=== PATIENT | male | born 1940 | race Caucasian/White ===

== ENCOUNTER 2022-05-17 13:26 | Inpatient (IN) ==
[2022-05-17] MEDS ORDERED: IODIXANOL 100 ML BOTTLE IV ONE (13:27)
--- NOTE | 2022-05-17 14:32 | Emergency Department Note ---
HPI General Chief complaint: Extremity Injury, Upper Stated complaint: right swollen hand Time Seen by Provider: 05/17/22 14:21 Source: patient Mode of arrival: ambulatory History of Present Illness HPI Narrative: Narrative: Patient is an 81 yo M who presents to the emergency department due to hand and arm swelling and redness. Patient initially went to minor care, but was sent to the emergency department due to concern for potential confusion. Patient denies confusion at this time. He states that he began to have pain and redness just proximal to his right index finger yesterday, but that this has spread rapidly. He endorses pain, swelling, and chills, but denies any other symptoms at this time. Related Data Home Medications Medication Instructions Recorded Confirmed acetaminophen 500 mg tablet 500 mg PO QDAY PRN Pain, Moderate 04/04/21 05/17/22 diphenhydramine HCl 25 mg capsule 25 mg PO QHS 09/06/21 05/17/22 (Benadryl) levothyroxine 50 mcg tablet 50 mcg PO QAM 02/14/22 05/17/22 (Euthyrox) prednisone 10 mg tablet 40 mg PO QDAY 05/17/22 05/17/22 Previous Rx's Medication Instructions Recorded simvastatin 40 mg tablet 40 mg PO QPM #90 tabs 08/14/21 meloxicam 7.5 mg tablet 15 mg PO HS #10 tabs 09/24/21 lisinopril 40 mg tablet 40 mg PO QDAY #90 tabs 04/02/22 Allergies Allergy/AdvReac Type Severity Reaction Status Date / Time No Known Drug Allergies Allergy Verified 05/17/22 21:06 Review of Systems ROS ROS Narrative: Narrative: Constitutional: Denies fever or weakness Eyes: Denies eye pain or vision change ENT ED: Denies throat pain or rhinorrhea Cardiovascular: Denies chest pain, dyspnea on exertion, orthopnea or edema Respiratory: Denies shortness of breath or cough Gastrointestinal: Denies abdominal pain, nausea, vomiting, diarrhea, constipation, hematochezia or melena Genitourinary: Denies dysuria or frequency Musculoskeletal: Reports other (Right hand and arm pain, redness, and swelling); Denies back pain or myalgia Integumentary: Reports change in color (Of right hand and arm); Denies rash or lesions Neurological: Denies headache, weakness, numbness, confusion, abnormal gait or dizziness Endocrine: Denies fatigue or polyuria Hematological/Lymphatic: Denies easy bleeding or easy bruising PFSH Narrative Patient History Narrative: Narrative: Medical/Surgical/Family History All Active Problems (Updated 05/18/22 @ 10:43 by Eran Santiago MD) Cellulitis (Acute) History of urostomy (Acute) Head injury (Acute) Injury of shoulder (Acute) Rotator cuff injury (Acute) HTN (hypertension) (Chronic) Hyponatremia (Chronic) Closed pelvic fracture (Acute) Closed head injury (Acute) Polyarthralgia (Acute) Complete small bowel obstruction (Acute) Carcinoma of bladder (Acute) Low back pain (Acute) Hamstring muscle strain (Acute) Coccyx pain (Acute) Rib fracture (Acute) Head injury (Acute) Rib pain on right side (Acute) Fall (Acute) Medicare annual wellness visit, subsequent (Acute) Dizziness (Acute) Primary osteoarthritis of left knee (Chronic) 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) Essential (primary) hypertension (Chronic) BPH w urinary obs/LUTS (Chronic) Bladder tumor (Chronic ~2011) Hematuria (Chronic ~2011) Tubular adenoma of colon (Chronic 10/07/12) Contusion of right hand (Acute) Right hand pain (Acute) Nocturia (Chronic) Shoulder sprain (Chronic) Knee pain (Chronic 10/07/14) Blepharitis (Chronic ~11/2015) Cataract (Chronic ~11/2015) History of tobacco use (Chronic) Arthritis of hand (Chronic ~2009) Bladder cancer (Chronic ~06/22/12) Hyperlipidemia (Chronic ~2004) Actinic keratosis (Chronic ~09/02/12) Dependent edema (Chronic ~10/19/14) Hypercholesteremia (Chronic ~04/29/12) Benign neoplasm of skin (Chronic ~09/19/12) Medical History Actinic keratosis (~09/02/12) Arthritis of hand (~2009) Benign neoplasm of skin (~09/19/12) Bladder cancer (~06/22/12) Bladder tumor (~2011) Blepharitis (~11/2015) Posterior type OU Carcinoma of bladder Cataract (~11/2015) OU Coccyx pain Dependent edema (~10/19/14) Hamstring muscle strain Hematuria (~2011) History of tobacco use Hypercholesteremia (~04/29/12) Hyperlipidemia (~2004) Knee pain (10/07/14) Overused Low back pain Medicare annual wellness visit, subsequent Nocturia Shoulder sprain Tubular adenoma of colon (10/07/12) Surgical History H/O colonoscopy 10/07/2012 H/O cystoscopy 05/01/2016 TUR bladder biopsy-stricture of the bulbous urethra. Urethral dilation performed. Papillary tumor present. H/O total cystectomy History of biopsy of bladder Second bladder biopsy on 11/22/2014 - Benign History of biopsy of bladder Initial bladder biopsy 06/26/2012 - TCC Ta, G1 History of bladder surgery 06/2012 TransUrethral Resection of Bladder Tumor History of cystoscopy (07/02/12) TURBT, bladder biopsies and installation of Adriamycin History of herniorrhaphy (~1998) Right side History of herniorrhaphy (~2012) Left side History of surgery (~2012) Chemo treatment for bladder cancer S/P cystourethroscopy with dilation of urethral stricture 03/30/14 Family History Mother Arthritis Dementia Father Heart attack CAD (coronary artery disease) Social History Smoking Status: Former smoker Alcohol Intake Frequency: 0-2 drinks per day Substance Use: does not use Exam Narrative Narrative: Narrative: General General appearance: Present alert and in no apparent distress; Absent anxious, appears intoxicated or sleepy Head Head: Present atraumatic and normocephalic Eye Eye: Present EOMI; Absent scleral icterus or nystagmus ENT ENT: Present mucous membranes moist; Absent nasal congestion Neck Neck: Present full ROM; Absent tenderness Chest Chest: Present normal inspection and symmetric chest wall rise; Absent tenderness Respiratory Respiratory: Present normal lung sounds bilaterally; Absent respiratory distress or accessory muscle use Cardiovascular Cardiovascular: Present regular rate, normal rhythm and normal heart sounds Adbominal Abdominal: Present soft and normal bowel sounds; Absent distention or tenderness Extremities Extremities: Present normal inspection, full ROM, tenderness and other (Right hand and forearm erythema, swelling, and tenderness); Absent pedal edema or pretibial edema Back Back: Present normal inspection and full ROM Neurological Neurological: Present alert and oriented X3; Absent motor sensory deficit Psychiatric Psychiatric: Present normal affect and normal mood Skin Skin: Present warm (WNL), dry and normal color Course Vital Signs Vital signs: Vital Signs Temperature 101.1 F H 05/17/22 13:30 Pulse Rate 66 05/17/22 13:30 Respiratory Rate 20 05/17/22 13:30 Blood Pressure 138/66 05/17/22 13:30 Pulse Oximetry (%) 94 05/17/22 13:30 Oxygen Delivery Method 05/17/22 13:30 Temperature 98.4 F 05/18/22 08:00 Pulse Rate 70 05/18/22 08:00 Respiratory Rate 16 05/18/22 08:00 Blood Pressure 109/59 05/18/22 08:00 Pulse Oximetry (%) 99 05/18/22 08:00 Oxygen Delivery Method 05/18/22 08:00 MDM MDM Narrative Medical decision making narrative: Narrative: Patient is an 81 yo M who presents to the emergency department due to RUE infection. Given rapidity of spread there is some concern for potential NSTI. XR and CT were performed and did not demonstrate findings consistent with NSTI. Labs were performed and patient given antibiotics. Patient has a leukocytosis of 16.5. Given concern for infection over large area and rapidity of spread I spoke to Dr. Capone about admission and he agreed to see and evaluate patient for this purpose. Lab Data Result diagrams: 05/18/22 05:54 05/18/22 05:54 Labs: Lab Results 05/17/22 05/17/22 05/17/22 Range/Units 14:55 14:55 14:55 WBC 16.5 H (4.5-11.0) K/mcL RBC 3.63 L (4.63-6.08) M/mcL Hgb 11.3 L (13.7-17.5) g/dL Hct 32.3 L (40.1-51.0) % POC Hct (41-55) MCV 89.0 (80.0-100.0) fL MCH 31.1 (26.0-34.0) pg MCHC 35.0 (31.0-36.0) g/dL RDW 13.0 (11.5-14.5) % Plt Count 217 (140-440) K/mcL MPV 8.9 (8.8-12.5) fL Immature Gran % (Auto) 0.4 (0.0-0.5) % Neut % (Auto) 91.6 H (38.0-78.0) % Lymph % (Auto) 2.8 L (15.5-49.0) % [place] % (Auto) 5.1 (1.0-12.0) % Eos % (Auto) 0 (0.0-7.0) % Baso % (Auto) 0.1 (0.0-2.0) % Lymph # (Auto) 0.47 L (1.50-4.80) K/mcL [place] # (Auto) 0.85 (0.10-0.90) K/mcL Eos # (Auto) 0 (0.00-0.70) K/mcL Baso # (Auto) 0.02 (0.00-0.30) K/mcL Immature Gran # 0.07 H (0.00-0.05) K/mcl Absolute Neutrophils 15.12 H (1.80-8.00) K/mcL POC Sodium (133-145) POC Potassium (3.3-5.1) POC Chloride (96-108) POC Total CO2 (22-30) POC BUN (6-20) POC Creatinine (0.6-1.2) POC Glucose (70-105) Osmolality 273 L (280-300) mOSM/kg Uric Acid 3.3 (2.5-8.0) mg/dL POC WB Ioniz Calcium (1.16-1.32) Procalcitonin 0.26 H (<0.10) ng/mL TSH 0.96 (0.27-5.01) uIU/mL 05/17/22 Range/Units 14:58 WBC (4.5-11.0) K/mcL RBC (4.63-6.08) M/mcL Hgb (13.7-17.5) g/dL Hct (40.1-51.0) % POC Hct 34.0 L (41-55) MCV (80.0-100.0) fL MCH (26.0-34.0) pg MCHC (31.0-36.0) g/dL RDW (11.5-14.5) % Plt Count (140-440) K/mcL MPV (8.8-12.5) fL Immature Gran % (Auto) (0.0-0.5) % Neut % (Auto) (38.0-78.0) % Lymph % (Auto) (15.5-49.0) % [place] % (Auto) (1.0-12.0) % Eos % (Auto) (0.0-7.0) % Baso % (Auto) (0.0-2.0) % Lymph # (Auto) (1.50-4.80) K/mcL [place] # (Auto) (0.10-0.90) K/mcL Eos # (Auto) (0.00-0.70) K/mcL Baso # (Auto) (0.00-0.30) K/mcL Immature Gran # (0.00-0.05) K/mcl Absolute Neutrophils (1.80-8.00) K/mcL POC Sodium 125 L (133-145) POC Potassium 4.1 (3.3-5.1) POC Chloride 91 L (96-108) POC Total CO2 28.0 (22-30) POC BUN 33 H (6-20) POC Creatinine 1.0 (0.6-1.2) POC Glucose 107 H (70-105) Osmolality (280-300) mOSM/kg Uric Acid (2.5-8.0) mg/dL POC WB Ioniz Calcium 1.15 L (1.16-1.32) Procalcitonin (<0.10) ng/mL TSH (0.27-5.01) uIU/mL Discharge Plan Patient/Caregiver Discharge Instructions Pt seen by PIPE RACKER/PA only: No Clinical Impression: Cellulitis Patient Disposition: Xfer As Inpt ([facility]) Discharge Date/Time: 05/17/22 20:28
[2022-05-17] MEDS ORDERED: VANCOMYCIN 1,000 MG in 0.9 % SODIUM CHLORIDE 250 ML IV ONE (14:57)
[2022-05-17] MEDS ORDERED: PIPERACILLIN SODIUM/TAZOBACTAM 3.375 GM in DEXTROSE 5% IN WATER 50 ML IV ONE (14:57)
[2022-05-17] MEDS ORDERED: 0.9 % SODIUM CHLORIDE 1,000 ML IV ONE (14:59)
[2022-05-17 15:03] LABS: POC Calcium, Ionized 1.15 (1.16-1.32); POC Potassium 4.1 (3.3-5.1)
--- NOTE | 2022-05-17 15:28 | XRay Report ---
INDICATION: Rapidly spreading infection, concern for NSTI TECHNIQUE: PA, oblique, lateral right hand COMPARISON: None. FINDINGS: Degenerative joint disease in the right first metacarpal phalangeal joint. Degenerative joint disease in the second through fifth distal interphalangeal joints. There is degenerative disease in the distal radial ulnar joint. There is a cyst in the right capitate. No pathologic fracture Second through fifth metacarpal phalangeal joints are unremarkable. There is no acute fracture. No soft tissue gas. No detectable foreign body IMPRESSION: 1. Degenerative joint disease 2. No fracture. No acute abnormality. No soft tissue gas or detectable foreign body 3. No interval change Interpreted and Authenticated by: Cuco Macdonald 05/17/22
--- NOTE | 2022-05-17 15:32 | XRay Report ---
INDICATION: Rapidly spreading infection, concern for NSTI TECHNIQUE: AP and lateral right forearm COMPARISON: None. FINDINGS: Negative radius and ulna. No acute fracture. Severe degenerative disease in the distal radial ulnar joint. No acute posttraumatic abnormality. No soft tissue gas or detectable foreign body IMPRESSION: No acute abnormality Interpreted and Authenticated by: Cuco Macdonald 05/17/22
[2022-05-17 15:49] LABS: Basophils # (Auto) 0.02 K/mcL (0.00-0.30); Basophils % (Auto) 0.1 % (0.0-2.0); Eosinophils # (Auto) 0 K/mcL (0.00-0.70); Eosinophils % (Auto) 0 % (0.0-7.0); Hematocrit 32.3 % (40.1-51.0); Hemoglobin 11.3 g/dL (13.7-17.5); Lymphocytes # (Auto) 0.47 K/mcL (1.50-4.80); Lymphocytes % (Auto) 2.8 % (15.5-49.0); Mean Platelet Volume 8.9 fL (8.8-12.5); Monocytes # (Auto) 0.85 K/mcL (0.10-0.90); Monocytes % (Auto) 5.1 % (1.0-12.0); Neutrophils % (Auto) 91.6 % (38.0-78.0); Platelet Count 217 K/mcL (140-440); RBC 3.63 M/mcL (4.63-6.08); WBC 16.5 K/mcL (4.5-11.0)
[2022-05-17] MEDS ORDERED: ACETAMINOPHEN 1,000 MG/100 ML BAG IV ONE (16:42)
--- NOTE | 2022-05-17 18:19 | Cat Scan Report ---
INDICATION: Concern for NSTI TECHNIQUE: Axial images through the right forearm. Intravenous contrast material was administered. Sagittal and coronal reformatted images. COMPARISON: Previous plain film examination dated 05/17/2022 FINDINGS: Radius and ulna are negative. There is no fracture. No osseous destruction. No evidence for osteomyelitis. There is density within the subcutaneous fat. There is also probable mild density within the muscle bundles. Appearance is consistent with edema or cellulitis. There is no discrete mass. No focal abscess identified. No enhancing lesion. There is no soft tissue gas to indicate necrotizing fasciitis. Vascular structures enhance normally. IMPRESSION: 1. Diffuse edema or cellulitis 2. No focal abnormality. No abscess. 3. No soft tissue gas. No evidence for necrotizing fasciitis Interpreted and Authenticated by: Cuco Macdonald 05/17/22
--- NOTE | 2022-05-17 19:09 | Internal Med History&Physical ---
HPI History of Present Illness Patient information: Note initiated : 05/17/22 at 7:04 pm Service Date, if different from initiated Date: [] Patient: Aneudy Sanders a 81 y/o M admitted on for right swollen hand. Chief Complaint: [] History of present illness: Mr. Sanders is a 81 year old M Presents to the ED with red and swollen and hot right hand. It started yesterday. Patient states that he woke up and feeling fine and his hand and arm were unre markable and then in the evening he did not notice it suddenly had increased in size with swelling, redness, warmth, painful. In the ED he is febrile and tachycardic. Have a leukocytosis 16,000. Elevated procalcitonin. His hand was diffusely swollen with severe cellulitis. CT of the forearm forearm and hand revealed severe diffuse cellulitis but no abscess or fasciitis. He has a history of bladder cancer status post cystectomy and is on nivolumab. Follows with Dr. Talley. Patient has history of hyponatremia and per oncology notes was advised to have fluid restriction of 1 L/day and salt tabs. Patient says he drinks at least 64- ounces (1900ml) a day. Patient was put on prednisone by his oncologist for potential autoimmune adverse event resulting in proximal muscle weakness of the lower extremities. He started 50 mg and taper down to 40 and then is supposed to go to 30 mg next week. Because of the severity of his cellulitis of the hand and arm and sepsis presentation. Admission was requested. Review of Systems: Pertinent positives as above. Denies headache/fever/chills/nausea/vomiting/chest or abdominal pain/cough/dyspnea/diarrhea. Remaining 10 point review of system reviewed negative PFSH PFSH All Active Problems History of urostomy (Acute) Head injury (Acute) Injury of shoulder (Acute) Rotator cuff injury (Acute) HTN (hypertension) (Chronic) Hyponatremia (Chronic) Closed pelvic fracture (Acute) Closed head injury (Acute) Polyarthralgia (Acute) Complete small bowel obstruction (Acute) Carcinoma of bladder (Acute) Low back pain (Acute) Hamstring muscle strain (Acute) Coccyx pain (Acute) Rib fracture (Acute) Head injury (Acute) Rib pain on right side (Acute) Fall (Acute) Medicare annual wellness visit, subsequent (Acute) Dizziness (Acute) Primary osteoarthritis of left knee (Chronic) 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) Essential (primary) hypertension (Chronic) BPH w urinary obs/LUTS (Chronic) Bladder tumor (Chronic ~2011) Hematuria (Chronic ~2011) Tubular adenoma of colon (Chronic 10/07/12) Contusion of right hand (Acute) Right hand pain (Acute) Nocturia (Chronic) Shoulder sprain (Chronic) Knee pain (Chronic 10/07/14) Blepharitis (Chronic ~11/2015) Cataract (Chronic ~11/2015) History of tobacco use (Chronic) Arthritis of hand (Chronic ~2009) Bladder cancer (Chronic ~06/22/12) Hyperlipidemia (Chronic ~2004) Actinic keratosis (Chronic ~09/02/12) Dependent edema (Chronic ~10/19/14) Hypercholesteremia (Chronic ~04/29/12) Benign neoplasm of skin (Chronic ~09/19/12) Medical History Actinic keratosis (~09/02/12) Arthritis of hand (~2009) Benign neoplasm of skin (~09/19/12) Bladder cancer (~06/22/12) Bladder tumor (~2011) Blepharitis (~11/2015) Posterior type OU Carcinoma of bladder Cataract (~11/2015) OU Coccyx pain Dependent edema (~10/19/14) Hamstring muscle strain Hematuria (~2011) History of tobacco use Hypercholesteremia (~04/29/12) Hyperlipidemia (~2004) Knee pain (10/07/14) Overused Low back pain Medicare annual wellness visit, subsequent Nocturia Shoulder sprain Tubular adenoma of colon (10/07/12) Surgical History H/O colonoscopy 10/07/2012 H/O cystoscopy 05/01/2016 TUR bladder biopsy-stricture of the bulbous urethra. Urethral dilation performed. Papillary tumor present. H/O total cystectomy History of biopsy of bladder Second bladder biopsy on 11/22/2014 - Benign History of biopsy of bladder Initial bladder biopsy 06/26/2012 - TCC Ta, G1 History of bladder surgery 06/2012 TransUrethral Resection of Bladder Tumor History of cystoscopy (07/02/12) TURBT, bladder biopsies and installation of Adriamycin History of herniorrhaphy (~1998) Right side History of herniorrhaphy (~2012) Left side History of surgery (~2012) Chemo treatment for bladder cancer S/P cystourethroscopy with dilation of urethral stricture 03/30/14 Family History Mother Arthritis Dementia Father Heart attack CAD (coronary artery disease) Social History marital status: occupational status: retired occupation: [email or web address] smoking status: Former smoker alcohol intake frequency: 0-2 drinks per day substance use type: does not use MEDS/ALLERGIES Home Medications and Allergies Home Medications Medication Instructions Recorded Confirmed Type acetaminophen 500 mg tablet 500 mg PO QDAY PRN Pain, Moderate 04/04/21 05/17/22 History [id number] K 1 tab PO QDAY 04/04/21 05/17/22 History [Adults Multivitamin] nivolumab 240 mg/24 mL intravenous 480 mg IV Q4W 07/17/21 05/17/22 History solution simvastatin 40 mg tablet 40 mg PO QPM #90 tabs 08/14/21 05/17/22 Rx diphenhydramine HCl 25 mg capsule 25 mg PO QHS 09/06/21 05/17/22 History (Benadryl) meloxicam 7.5 mg tablet 15 mg PO HS #10 tabs 09/24/21 05/17/22 Rx levothyroxine 50 mcg tablet 50 mcg PO QAM 02/14/22 05/17/22 History (Euthyrox) lisinopril 40 mg tablet 40 mg PO QDAY #90 tabs 04/02/22 05/17/22 Rx polyethylene glycol 3350 17 gram 17 g PO DAILY constipation 04/02/22 05/17/22 History oral powder packet (HealthyLax) prednisone 10 mg tablet 50 mg PO QDAY 05/17/22 05/17/22 History Allergies Allergy/AdvReac Type Severity Reaction Status Date / Time No Known Drug Allergies Allergy Verified 05/17/22 12:58 EXAM Constitutional Vitals: Temp Pulse Resp BP Pulse Ox O2 Del Method 98.4 F 93 H 20 123/53 100 05/17/22 17:45 05/17/22 17:31 05/17/22 13:30 05/17/22 17:31 05/17/22 17:31 05/17/22 13:30 Exam: General: Alert, Awake, No acute Distress Eyes/N/T: EOMI, PERRL, Head/Neck: neck supple, normocephalic atraumatic CV: RRR, No murmurs, normal s1/s2 Pulm: Clear b/l, no wheezing/rhonchi/rales Abd: soft, nontender, +BS x4 Ext: no clubbing/cyanosis/edema of LE. RUE with erythema/edema/tenderness extending from the hand up the forearm and much worse over the hand. Neuro: Alert, no focal deficits, moves all extremities, CN 2-12 grossly intact, symmetrical strength b/l upper/lower, sensations intact b/l upper/lower Skin: warm/dry DATA Data Completed and Pending Labs: Labs from last 24 hours 05/17/22 05/17/22 05/17/22 14:58 14:55 14:55 WBC 16.5 H RBC 3.63 L Hgb 11.3 L Hct 32.3 L POC Hct 34.0 L MCV 89.0 MCH 31.1 MCHC 35.0 RDW 13.0 Plt Count 217 MPV 8.9 Immature Gran % (Auto) 0.4 Neut % (Auto) 91.6 H Lymph % (Auto) 2.8 L [place] % (Auto) 5.1 Eos % (Auto) 0 Baso % (Auto) 0.1 Lymph # (Auto) 0.47 L [place] # (Auto) 0.85 Eos # (Auto) 0 Baso # (Auto) 0.02 Immature Gran # 0.07 H Absolute Neutrophils 15.12 H POC Sodium 125 L POC Potassium 4.1 POC Chloride 91 L POC Total CO2 28.0 POC BUN 33 H POC Creatinine 1.0 POC Glucose 107 H POC WB Ioniz Calcium 1.15 L Procalcitonin 0.26 H A/P Narrative A/P Narrative: A: *Right hand forearm cellulitis, severe: -no abscess or fasciitis *Sepsis: *Hyponatremia, chronic: *h/o bladder CA s/p cystectomy and urostomy: currently on Nivolumab -currently on prednisone taper started several weeks ago by oncology, currently on 40mg *Immunocompromised: *CKD II: *Anemia, chronic: *HTN/HLD: *Hypothyroidism: * P: -IV antibiotics including clindamycin for 48 hours for toxin production, MRSA screen -Monitor vitals closely and for progression of cellulitis. -Hyponatremia work-up pending -Monitor sodium -Monitor and replace other electrolytes -Continue home ACEI -Home medication reconciliation -PT/OT -CM for placement needs -ppx: Lovenox Time Spent With Patient Time: Total time spent is greater than 50% in coordination of care (as documented) at patient's floor/unit and/or counseling patient: Total time spent with greater than 50% in coordination of care (as documented) at patient's floor/unit and/or counseling patient:: Greater than 70 minutes
[2022-05-17] MEDS ORDERED: POLYETHYLENE GLYCOL 3350 17 GM PACKET PO PRN (20:36)
[2022-05-17] MEDS ORDERED: POTASSIUM CHLORIDE 20 MEQ TABLET PO PRN ×2 (20:36)
[2022-05-17] MEDS ORDERED: ONDANSETRON 4 MG/2 ML VIAL IV PRN (20:36)
[2022-05-17] MEDS ORDERED: IPRATROPIUM/ALBUTEROL 3 ML AMPUL.NEB NEB PRN (20:36)
[2022-05-17] MEDS ORDERED: morphine 4 MG/ML VIAL IV PRN (20:36)
[2022-05-17] MEDS ORDERED: MAGNESIUM SULFATE 2 GM/50 ML BAG IV PRN (20:36)
[2022-05-17] MEDS ORDERED: HYDROcodone/APAP 5/325MG TABLET PO PRN (20:36)
[2022-05-17] MEDS ORDERED: POTASSIUM CHLORIDE 40 MEQ in DEXTROSE 5% IN WATER 500 ML IV PRN (20:36)
[2022-05-17] MEDS ORDERED: SENNOSIDES 1 TABLET PO PRN (20:36)
[2022-05-17] MEDS: PIPERACILLIN SODIUM/TAZOBACTAM 3.375 GM in DEXTROSE 5% IN WATER 50 ML IV SCH (21:37)
[2022-05-17] MEDS: 0.9 % SODIUM CHLORIDE 10 ML SYRINGE IV SCH (21:37)
[2022-05-17] MEDS: DOCUSATE SODIUM 100 MG CAPSULE PO SCH (21:38)
[2022-05-17] MEDS: ACETAMINOPHEN 325 MG TABLET PO PRN (21:56)
[2022-05-17] MEDS: CLINDAMYCIN IN 0.9 % SOD CHLOR 600 MG/50 ML BAG IV SCH (22:29)
[2022-05-17] MEDS ORDERED: diphenhydrAMINE (PP) 25MG TABLET (#24) PO ONE (22:31)
[2022-05-17] MEDS ORDERED: MELOXICAM 7.5 MG TABLET PO SCH (22:32)
[2022-05-17] MEDS ORDERED: diphenhydrAMINE 25 MG CAPSULE ONE (22:38)
[2022-05-17] MEDS: MELOXICAM 7.5 MG TABLET PO PRN (23:04)
[2022-05-17] MEDS: SIMVASTATIN 40 MG TABLET PO SCH (23:28)
[2022-05-17 23:32] LABS: Thyroid Stimulating Hormone 0.96 uIU/mL (0.27-5.01); Uric Acid 3.3 mg/dL (2.5-8.0)
[2022-05-17 23:59] LABS: Osmolality,Urine 554 mOSM/kg (80-1000); Sodium, Urine Random 26 mmol/L
[2022-05-18] MEDS: PIPERACILLIN SODIUM/TAZOBACTAM 3.375 GM in DEXTROSE 5% IN WATER 50 ML IV SCH ×4 (03:19→21:38)
[2022-05-18] MEDS: ACETAMINOPHEN 325 MG TABLET PO PRN ×2 (04:46→20:58)
[2022-05-18] MEDS: 0.9 % SODIUM CHLORIDE 10 ML SYRINGE IV SCH ×3 (04:47→22:00)
[2022-05-18] MEDS: CLINDAMYCIN IN 0.9 % SOD CHLOR 600 MG/50 ML BAG IV SCH ×3 (04:47→21:01)
[2022-05-18 06:59] LABS: Basophils # (Auto) 0.02 K/mcL (0.00-0.30); Basophils % (Auto) 0.1 % (0.0-2.0); Eosinophils # (Auto) 0 K/mcL (0.00-0.70); Eosinophils % (Auto) 0 % (0.0-7.0); Hematocrit 25.4 % (40.1-51.0); Hemoglobin 8.8 g/dL (13.7-17.5); Lymphocytes # (Auto) 0.77 K/mcL (1.50-4.80); Lymphocytes % (Auto) 5.6 % (15.5-49.0); Mean Cell Volume 89.8 fL (80.0-100.0); Mean Corpuscular HGB Conc 34.6 g/dL (31.0-36.0); Mean Platelet Volume 9.2 fL (8.8-12.5); Monocytes # (Auto) 0.92 K/mcL (0.10-0.90); Monocytes % (Auto) 6.6 % (1.0-12.0); Neutrophils % (Auto) 87.1 % (38.0-78.0); Platelet Count 149 K/mcL (140-440); RBC 2.83 M/mcL (4.63-6.08); Red Cell Distribution Width 13.1 % (11.5-14.5); WBC 13.9 K/mcL (4.5-11.0)
[2022-05-18 07:29] LABS: ALT/SGPT 14 U/L (<40); AST/SGOT 15 U/L (<40); Albumin 2.8 gm/dL (3.2-5.2); Albumin/Globulin Ratio 1.6 (1.0-2.3); Alkaline Phosphatase 39 U/L (39-117); Bilirubin,Direct 0.4 mg/dL (<0.3); Bilirubin,Total 1.5 mg/dL (0.1-1.0); Blood Urea Nitrogen 26 mg/dL (8-23); Calcium 8.4 mg/dL (8.6-10.4); Carbon Dioxide 23 mmol/L (22-30); Chloride 93 mmol/L (96-108); Globulin 1.7 gm/dL (2.2-3.7); Glomerular Filtration Rate 62; Glucose 102 mg/dL (70-105); Lactate Dehydrogenase 252 U/L (135-225); Phosphorous 3.4 mg/dL (2.5-4.5); Triglycerides 51 mg/dL (<150); Uric Acid 2.2 mg/dL (2.5-8.0)
--- NOTE | 2022-05-18 07:31 | Internal Med Progress Note ---
SUBJECTIVE Subjective Patient information: Note initiated : 05/18/22 at 7:26 am Service Date, if different from initiated Date: [] Patient: Aneudy Sanders a 81 y/o M admitted on 05/17/22 for right swollen hand- Sepsis/Cellulitis. Chief Complaint: [] Interval history: History of present illness: Mr. Sanders is a 81 year old M Presents to the ED with red and swollen and hot right hand. It started yesterday. Patient states that he woke up and feeling fine and his hand and arm were unremarkable and then in the evening he did not notice it suddenly had increased in size with swelling, redness, warmth, painful. In the ED he is febrile and tachycardic. Have a leukocytosis 16,000. Elevated procalcitonin. His hand was diffusely swollen with severe cellulitis. CT of the forearm forearm and hand revealed severe diffuse cellulitis but no abscess or fasciitis. He has a history of bladder cancer status post cystectomy and is on nivolumab. Follows with Dr. Talley. Patient has history of hyponatremia and per oncology notes was advised to have fluid restriction of 1 L/day and salt tabs. Patient says he drinks at least 64- ounces (1900ml) a day. Patient was put on prednisone by his oncologist for potential autoimmune adverse event resulting in proximal muscle weakness of the lower extremities. He started 50 mg and taper down to 40 and then is supposed to go to 30 mg next week. Because of the severity of his cellulitis of the hand and arm and sepsis presentation. Admission was requested. 05/18 Patient complains of hand still swollen and tender but feels like it slightly improved he is able to close his hand a little more. Leukocytosis present but mildly improved. Hemoglobin decreased by several points today. Patient denies diarrhea or bleeding. Likely due to delusional, monitor. Review of Systems: denies headache/fever/chills/nausea/vomiting/chest or abdominal pain/cough/dyspnea/diarrhea. Otherwise see above. Constitutional Vitals: Vital Signs Temp Pulse Resp BP Pulse Ox O2 Del Method 99.7 F H 66 18 110/58 97 05/18/22 03:21 05/18/22 03:21 05/18/22 03:21 05/18/22 03:21 05/18/22 03:21 05/18/22 03:21 Period Temp Pulse Resp BP Sys/Dutton Pulse Ox O2 Del Method O2 Flow Rate Last 24 Hr 97.7 F-101.1 F 66-96 18-20 109-145/50-73 94-100 Room Air-Room Air Intake and Output 05/17/22 05/18/22 05/18/22 19:59 03:59 11:59 Intake Total 1400 100 100 Output Total 450 Balance 1400 -350 100 Weight 55.792 kg 53.155 kg Intake & Output: Intake & Output 05/17/22 05/18/22 05/18/22 19:59 03:59 11:59 Intake Total 1400 100 100 Output Total 450 Balance 1400 -350 100 Weight 55.792 kg 53.155 kg Intake: IV 1400 100 100 Sodium Chloride 0.9% 1,000 ml @ 1000 Wide Open IV BOLUS ONE Rx#: [id number] Zosyn 3.375 gm In Dextrose 5% 50 50 50 in Water 50 ml @ 100 mls/hr IV Q6H [facility] Rx#:[id number] Vancomycin 1,000 mg In Sodium 250 Chloride 0.9% 250 ml @ 250 mls/ hr IV ONCE ONE Rx#:[id number] Output: Void Amount 450 Exam: General: Alert, Awake, No acute Distress Eyes/N/T: EOMI, Head/Neck: neck supple, CV: RRR, No murmurs, Pulm: Clear b/l, no wheezing/rhonchi/rales Abd: soft, nontender, +BS x4 Ext: no clubbing/cyanosis/edema of LE. RUE with erythema/edema/tenderness extending from the hand up the forearm and much worse over the hand -mildly improved today. Neuro: Alert, no focal deficits, moves all extremities, Skin: warm/dry OBJ DATA Labs CBC & Chem 7: 05/18/22 05:54 05/18/22 05:54 Labs: Abnormal Lab Results 05/18/22 05/18/22 05/17/22 05:55 05:54 14:58 WBC 13.9 H RBC 2.83 L Hgb 8.8 L Hct 25.4 L POC Hct 34.0 L Immature Gran % (Auto) 0.6 H Neut % (Auto) 87.1 H Lymph % (Auto) 5.6 L Lymph # (Auto) 0.77 L Garza # (Auto) 0.92 H Immature Gran # 0.09 H Absolute Neutrophils 12.06 H POC VBG pH 7.49 H POC VBG pCO2 at Temp 31.3 L POC VBG pO2 61 H POC VBG HCO3 23.6 L POC Venous O2 Sat 93.0 H VBG Lactic Acid 0.4 L POC Sodium 125 L POC Chloride 91 L POC BUN 33 H POC Glucose 107 H Osmolality POC WB Ioniz Calcium 1.15 L Procalcitonin 05/17/22 05/17/22 05/17/22 14:55 14:55 14:55 WBC 16.5 H RBC 3.63 L Hgb 11.3 L Hct 32.3 L POC Hct Immature Gran % (Auto) Neut % (Auto) 91.6 H Lymph % (Auto) 2.8 L Lymph # (Auto) 0.47 L [place] # (Auto) Immature Gran # 0.07 H Absolute Neutrophils 15.12 H POC VBG pH POC VBG pCO2 at Temp POC VBG pO2 POC VBG HCO3 POC Venous O2 Sat VBG Lactic Acid POC Sodium POC Chloride POC BUN POC Glucose Osmolality 273 L POC WB Ioniz Calcium Procalcitonin 0.26 H Meds: Medications Acetaminophen (Acetaminophen 325 Mg Tablet) 650 mg PO Q6HP PRN; Protocol PRN Reason: Per Pain Protocol/Fever > 101 Last Admin: 05/18/22 04:46 Dose: 650 mg Hydrocodone Bitart/Acetaminophen (Hydrocodone/Apap 5/325mg Tablet) 1 tab PO Q4HP PRN PRN Reason: PAIN LEVEL 3-6 Albuterol/Ipratropium (Ipratropium/Albuterol 3 Ml Ampul.Neb) 3 ml NEB Q4HP PRN PRN Reason: Shortness Of Breath Diphenhydramine HCl (Diphenhydramine 25 Mg Capsule) 25 mg PO QHS [facility] Diphenhydramine HCl (Diphenhydramine (Pp) 25mg Tablet (#24)) 25 tablet PO ONCE ONE Stop: 05/17/22 22:32 Last Admin: 05/17/22 22:49 Dose: 25 mg Docusate Sodium (Docusate Sodium 100 Mg Capsule) 100 mg PO BID [facility] Last Admin: 05/17/22 21:38 Dose: Not Given Enoxaparin Sodium (Enoxaparin 40 Mg/0.4 Ml Syringe) 40 mg SQ DAILY [facility] Potassium Chloride 40 meq/ (Dextrose) 520 mls @ 130 mls/hr IV UD PRN PRN Reason: Potassium < 3 Magnesium Sulfate (Magnesium Sulfate) 2 gm in 50 mls @ 50 mls/hr IV UD PRN PRN Reason: Magnesium </= 1.6 Piperacillin Sod/Tazobactam (Sod 3.375 gm/ Dextrose) 50 mls @ 100 mls/hr IV Q6H [facility]; Protocol Last Infusion: 05/18/22 04:33 Dose: Infused CLINDAMYCIN IN 0.9 % SOD CHLOR (Clindamycin 600 Mg/50 Ml-Ns) 600 mg in 50 mls @ 100 mls/hr IV Q8H [facility] Stop: 05/19/22 13:29 Last Infusion: 05/18/22 06:42 Dose: Infused Levothyroxine Sodium (Levothyroxine 50 Mcg Tablet) 50 mcg PO QAM [facility] Lisinopril (Lisinopril 20 Mg Tablet) 40 mg PO QDAY [facility] Meloxicam (Meloxicam 7.5 Mg Tablet) 15 mg PO HSP PRN; Protocol PRN Reason: pain Last Admin: 05/17/22 23:04 Dose: 15 mg Morphine Sulfate (Morphine 4 Mg/Ml Vial) 0 mg IV Q3HP PRN PRN Reason: Pain Ondansetron HCl (Ondansetron 4 Mg/2 Ml Vial) 4 mg IV Q4HP PRN PRN Reason: Nausea And Vomiting Polyethylene Glycol (Polyethylene Glycol 3350 17 Gm Packet) 17 gm PO DAILYP PRN PRN Reason: Constipation Potassium Chloride (Potassium Chloride 20 Meq Tablet) 40 meq PO UD PRN PRN Reason: Potssium is 3-3.5 Potassium Chloride (Potassium Chloride 20 Meq Tablet) 40 meq PO UD PRN PRN Reason: Potassium < 3 Prednisone (Prednisone 20 Mg Tablet) 40 mg PO QDAY [facility] Senna (Sennosides 1 Tablet) 2 tab PO DAILYP PRN PRN Reason: Constipation Simvastatin (Simvastatin 40 Mg Tablet) 40 mg PO QPM [facility] Last Admin: 05/17/22 23:28 Dose: Not Given Sodium Chloride (0.9 % Sodium Chloride 10 Ml Syringe) 10 ml IV Q8 [facility] Last Admin: 05/18/22 04:47 Dose: 10 ml A/P Narrative A/P Narrative: A: *Right hand forearm cellulitis, severe: Slowly improving -no abscess or fasciitis on CT *Sepsis: -Tm 100.8 o/n -leukocytosis improving *Hyponatremia, chronic: *h/o bladder CA s/p cystectomy and urostomy: currently on Nivolumab -currently on prednisone taper started several weeks ago by oncology, currently on 40mg *Immunocompromised: *CKD II: *Anemia, acute on chronic:suspect dilution, no gross bleeding monitor for bleeding fobt *HTN/HLD: *Hypothyroidism: tsh wnl * P: -IV antibiotics including clindamycin for 48 hours for toxin production, MRSA screen neg -Monitor vitals closely and for progression of cellulitis. -fluid restrict, salt tabs -Monitor sodium -Monitor and replace other electrolytes -monitor h&h -Continue home ACEI -PT/OT -CM for placement needs -ppx: Lovenox Time Spent With Patient Time: Total time spent is greater than 50% in coordination of care (as documented) at patient's floor/unit and/or counseling patient: Total time spent with greater than 50% in coordination of care (as documented) at patient's floor/unit and/or counseling patient:: 35 - 50 minutes [facility]AL[facility] VTE Deep Vein Thrombosis/Pulmonary Embolism Present on Admission: No
[2022-05-18] MEDS: LISINOPRIL 20 MG TABLET PO SCH (08:22)
[2022-05-18] MEDS: LEVOTHYROXINE 50 MCG TABLET PO SCH (08:22)
[2022-05-18] MEDS: DOCUSATE SODIUM 100 MG CAPSULE PO SCH ×2 (08:22→22:36)
[2022-05-18] MEDS: SODIUM CHLORIDE 1 GM TABLET PO SCH ×3 (08:22→20:58)
[2022-05-18] MEDS: ENOXAPARIN 40 MG/0.4 ML SYRINGE SQ SCH (08:22)
[2022-05-18] MEDS: predniSONE 20 MG TABLET PO SCH (08:22)
[2022-05-18] MEDS ORDERED: diphenhydrAMINE (PP) 25MG TABLET (#24) PO ONE (11:15)
--- NOTE | 2022-05-18 12:20 | Discharge Summary ---
Discharge Provider Provider IMPORTANT FOLLOW-UP INFORMATION FOR PCP: Patient information: Note initiated : 05/18/22 at 12:18 pm Service Date, if different from initiated Date: [] Patient: Aneudy Sanders 81 y/o M admitted on 05/17/22 for right swollen hand-Sepsis/Cellulitis. Chief Complaint: [] Date of admission: 05/17/22 20:28 Discharge date: 05/19/22 Primary care physician: Cuco Arshad DO COURSE Hospital Course Hospital course: History of present illness: Mr. Sanders is a 81 year old M Presents to the ED with red and swollen and hot right hand. It started yesterday. Patient states that he woke up and feeling fine and his hand and arm were unremarkable and then in the evening he did not notice it suddenly had increased in size with swelling, redness, warmth, painful. In the ED he is febrile and tachycardic. Have a leukocytosis 16,000. Elevated procalcitonin. His hand was diffusely swollen with severe cellulitis. CT of the forearm forearm and hand revealed severe diffuse cellulitis but no abscess or fasciitis. He has a history of bladder cancer status post cystectomy and is on nivolumab. Follows with Dr. Talley. Patient has history of hyponatremia and per oncology notes was advised to have fluid restriction of 1 L/day and salt tabs. Patient says he drinks at least 64- ounces (1900ml) a day. Patient was put on prednisone by his oncologist for potential autoimmune adverse event resulting in proximal muscle weakness of the lower extremities. He started 50 mg and taper down to 40 and then is supposed to go to 30 mg next week. Because of the severity of his cellulitis of the hand and arm and sepsis presentation. Admission was requested. 05/18 Patient complains of hand still swollen and tender but feels like it slightly improved he is able to close his hand a little more. Leukocytosis present but mildly improved. Hemoglobin decreased by several points today. Patient denies diarrhea or bleeding. Likely due to delusional, monitor. 05/19 Patient will hand is continue to improve. Less swollen less red less painful. Leukocytosis continues to improve. A: *Right hand forearm cellulitis, severe: *Sepsis: *Hyponatremia, chronic: *h/o bladder CA s/p cystectomy and urostomy: currently on Nivolumab -currently on prednisone taper started several weeks ago by oncology, currently on 40mg *Immunocompromised: *CKD II: *Anemia, acute on chronic: *HTN/HLD: *Hypothyroidism: P: -Abx -fluit restrict at home 1500cc free water Discharge diagnosis: Cellulitis sepsis hyponatremia Secondary discharge diagnosis: Chronic kidney disease chronic anemia hypertension hypothyroidism Time Spent with Patient Time attestation: Total time spent providing and/or coordinating discharge services: Time spent: Greater than 30 minutes EXAM Constitutional Vitals: Temp Pulse Resp BP Pulse Ox O2 Del Method 98.4 F 70 16 109/59 99 05/18/22 08:00 05/18/22 08:00 05/18/22 08:00 05/18/22 08:00 05/18/22 08:00 05/18/22 08:00 Discharge Data Data Completed and Pending Labs on day of discharge: Labs from last 24 hours 05/18/22 05/18/22 05/18/22 05:55 05:54 05:54 WBC 13.9 H RBC 2.83 L Hgb 8.8 L Hct 25.4 L POC Hct MCV 89.8 MCH 31.1 MCHC 34.6 RDW 13.1 Plt Count 149 MPV 9.2 Immature Gran % (Auto) 0.6 H Neut % (Auto) 87.1 H Lymph % (Auto) 5.6 L [place] % (Auto) 6.6 Eos % (Auto) 0 Baso % (Auto) 0.1 Lymph # (Auto) 0.77 L [place] # (Auto) 0.92 H Eos # (Auto) 0 Baso # (Auto) 0.02 Immature Gran # 0.09 H Absolute Neutrophils 12.06 H POC VBG pH 7.49 H POC VBG pCO2 at Temp 31.3 L POC VBG pO2 61 H POC VBG HCO3 23.6 L POC VBG Total CO2 25.0 POC Venous O2 Sat 93.0 H POC VBG Base Excess 0 VBG Lactic Acid 0.4 L POC Sodium Sodium 126 L POC Potassium Potassium 4.1 POC Chloride Chloride 93 L Carbon Dioxide 23 POC Total CO2 Anion Gap 10.0 POC BUN BUN 26 H Creatinine 1.1 POC Creatinine GFR Calculation 62 Glucose 102 POC Glucose Osmolality Uric Acid 2.2 L Calcium 8.4 L POC WB Ioniz Calcium Phosphorus 3.4 Magnesium 1.9 Total Bilirubin 1.5 H Direct Bilirubin 0.4 H GGT 9 AST 15 ALT 14 Alkaline Phosphatase 39 Lactate Dehydrogenase 252 H Total Protein 4.5 L Albumin 2.8 L Globulin 1.7 L Albumin/Globulin Ratio 1.6 Triglycerides 51 Procalcitonin TSH Urine Osmolality Ur Random Sodium 05/17/22 05/17/22 05/17/22 23:01 14:58 14:55 WBC RBC Hgb Hct POC Hct 34.0 L MCV MCH MCHC RDW Plt Count MPV Immature Gran % (Auto) Neut % (Auto) Lymph % (Auto) [place] % (Auto) Eos % (Auto) Baso % (Auto) Lymph # (Auto) [place] # (Auto) Eos # (Auto) Baso # (Auto) Immature Gran # Absolute Neutrophils POC VBG pH POC VBG pCO2 at Temp POC VBG pO2 POC VBG HCO3 POC VBG Total CO2 POC Venous O2 Sat POC VBG Base Excess VBG Lactic Acid POC Sodium 125 L Sodium POC Potassium 4.1 Potassium POC Chloride 91 L Chloride Carbon Dioxide POC Total CO2 28.0 Anion Gap POC BUN 33 H BUN Creatinine POC Creatinine 1.0 GFR Calculation Glucose POC Glucose 107 H Osmolality 273 L Uric Acid 3.3 Calcium POC WB Ioniz Calcium 1.15 L Phosphorus Magnesium Total Bilirubin Direct Bilirubin GGT AST ALT Alkaline Phosphatase Lactate Dehydrogenase Total Protein Albumin Globulin Albumin/Globulin Ratio Triglycerides Procalcitonin TSH 0.96 Urine Osmolality 554 Ur Random Sodium 26 05/17/22 05/17/22 14:55 14:55 WBC 16.5 H RBC 3.63 L Hgb 11.3 L Hct 32.3 L POC Hct MCV 89.0 MCH 31.1 MCHC 35.0 RDW 13.0 Plt Count 217 MPV 8.9 Immature Gran % (Auto) 0.4 Neut % (Auto) 91.6 H Lymph % (Auto) 2.8 L [place] % (Auto) 5.1 Eos % (Auto) 0 Baso % (Auto) 0.1 Lymph # (Auto) 0.47 L [place] # (Auto) 0.85 Eos # (Auto) 0 Baso # (Auto) 0.02 Immature Gran # 0.07 H Absolute Neutrophils 15.12 H POC VBG pH POC VBG pCO2 at Temp POC VBG pO2 POC VBG HCO3 POC VBG Total CO2 POC Venous O2 Sat POC VBG Base Excess VBG Lactic Acid POC Sodium Sodium POC Potassium Potassium POC Chloride Chloride Carbon Dioxide POC Total CO2 Anion Gap POC BUN BUN Creatinine POC Creatinine GFR Calculation Glucose POC Glucose Osmolality Uric Acid Calcium POC WB Ioniz Calcium Phosphorus Magnesium Total Bilirubin Direct Bilirubin GGT AST ALT Alkaline Phosphatase Lactate Dehydrogenase Total Protein Albumin Globulin Albumin/Globulin Ratio Triglycerides Procalcitonin 0.26 H TSH Urine Osmolality Ur Random Sodium Discharge Plan Patient/Caregiver Discharge Instructions Activity: increase activity as tolerated Diet: Regular Diet Activity Restrictions/Additional Instructions: 1500cc/day fluid restrict Prescriptions: New cephalexin 500 mg capsule 500 mg PO QID Qty: 20 0RF clindamycin HCl 300 mg capsule 300 mg PO QID Qty: 4 0RF Continued simvastatin 40 mg tablet 40 mg PO QPM Qty: 90 3RF levothyroxine [Euthyrox] 50 mcg tablet 50 mcg PO QAM prednisone 10 mg tablet 40 mg PO QDAY diphenhydramine HCl [Benadryl] 25 mg capsule 25 mg PO QHS lisinopril 40 mg tablet 40 mg PO QDAY Qty: 90 3RF acetaminophen 500 mg tablet 500 mg PO QDAY PRN (Reason: Pain, Moderate) meloxicam 7.5 mg Tablet 15 mg PO HS Qty: 10 0RF Follow Up Plan Follow up with: Cuco Arshad DO [Primary Care Provider] - Patient Disposition: Home, Self-Care Overall status at discharge: patient is progressing back to baseline Discharge Orders: Discharge Order (Routine); Ordered 05/19/22 Ordered By: Simon Capone [facility] VTE Deep Vein Thrombosis/Pulmonary Embolism Present on Admission: No
[2022-05-18] MEDS: MELOXICAM 7.5 MG TABLET PO PRN (20:58)
[2022-05-18] MEDS: SIMVASTATIN 40 MG TABLET PO SCH (20:58)
[2022-05-18] MEDS ORDERED: SIMVASTATIN 40 MG TABLET PO SCH (21:00)
[2022-05-18] MEDS ORDERED: diphenhydrAMINE 25 MG CAPSULE PO SCH (21:00)
[2022-05-19] MEDS: 0.9 % SODIUM CHLORIDE 10 ML SYRINGE IV SCH ×2 (03:21→05:21)
[2022-05-19] MEDS: PIPERACILLIN SODIUM/TAZOBACTAM 3.375 GM in DEXTROSE 5% IN WATER 50 ML IV SCH (03:21)
[2022-05-19] MEDS: CLINDAMYCIN IN 0.9 % SOD CHLOR 600 MG/50 ML BAG IV SCH (05:20)
[2022-05-19 06:35] LABS: Basophils # (Auto) 0.01 K/mcL (0.00-0.30); Basophils % (Auto) 0.1 % (0.0-2.0); Eosinophils # (Auto) 0.01 K/mcL (0.00-0.70); Eosinophils % (Auto) 0.1 % (0.0-7.0); Hematocrit 25.9 % (40.1-51.0); Hemoglobin 8.9 g/dL (13.7-17.5); Lymphocytes % (Auto) 7.2 % (15.5-49.0); Mean Cell Volume 89.3 fL (80.0-100.0); Mean Corpuscular HGB Conc 34.4 g/dL (31.0-36.0); Mean Platelet Volume 9.3 fL (8.8-12.5); Monocytes % (Auto) 6.4 % (1.0-12.0); Neutrophils % (Auto) 85.9 % (38.0-78.0); Platelet Count 154 K/mcL (140-440); WBC 12.5 K/mcL (4.5-11.0)
[2022-05-19 07:02] LABS: Blood Urea Nitrogen 30 mg/dL (8-23); Calcium 8.3 mg/dL (8.6-10.4); Carbon Dioxide 23 mmol/L (22-30); Chloride 92 mmol/L (96-108); Glomerular Filtration Rate 69; Glucose 104 mg/dL (70-105)
[2022-05-19] MEDS: ENOXAPARIN 40 MG/0.4 ML SYRINGE SQ SCH (08:47)
[2022-05-19] MEDS: LISINOPRIL 20 MG TABLET PO SCH (08:47)
[2022-05-19] MEDS: predniSONE 20 MG TABLET PO SCH (08:47)
[2022-05-19] MEDS: LEVOTHYROXINE 50 MCG TABLET PO SCH (08:47)
[2022-05-19] MEDS: SODIUM CHLORIDE 1 GM TABLET PO SCH (08:47)
[2022-05-19] MEDS: DOCUSATE SODIUM 100 MG CAPSULE PO SCH (08:47)
[2022-05-19] MEDS ORDERED: cefTRIAXone 2 GM in DEXTROSE 5% IN WATER 50 ML IV SCH (09:00)
== END 2022-05-19 11:20 | disposition home or self-care (01) | DRG 602 ==
LOC: ED 13:26 → MEDSUR 20:28
PROVIDERS: ADMIT Internal Medicine; ATTEND Internal Medicine